=== PATIENT | female | born 1955 | race Caucasian/White ===

== ENCOUNTER → 2021-01-26 | Outpatient (CLI) | payer BC ==
[2021-01-27 04:07] LABS: FSH 71.9 mIU/mL (.); LUTEINIZING HORMONE 33.8 mIU/mL (.); TESTOSTERONE TOTAL 6 ng/dL (3-67)
== END ==
LOC: LAB 14:53
PROVIDERS: ATTEND Physician Assistant
DX: L65.9 Nonscarring hair loss, unspecified (principal)
CPT/HCPCS: 36415; 82627; 82728; 83001; 83002; 84403